=== PATIENT | male | born 1990 | race Caucasian/White ===

== ENCOUNTER 2018-05-20 14:42 | Emergency (ER) | payer MEDICAID ==
--- NOTE | 2018-05-20 15:22 | EDPHY ---
H & P Stated Complaint: WORM IN STOOL Time Seen by Provider: 05/20/18 15:01 HPI/ROS: CHIEF COMPLAINT: Worm in stool HISTORY OF PRESENT ILLNESS: 28-year-old male presents with a worm in his stool. Recent extensive travel to [place], followed by a camping trip [place] [facility]. Vague abdominal discomfort for few days, diarrhea a few days ago. Normal BM today, saw a whitish worm in stool this morning. No fever. REVIEW OF SYSTEMS: complete 10 point ROS negative except at noted in the HPI - Personal History Current Tetanus Diphtheria and Acellular Pertussis (TDAP): Yes - Medical/Surgical History Hx Asthma: No Hx Chronic Respiratory Disease: No Hx Diabetes: No Hx Cardiac Disease: No Hx Renal Disease: No Hx Cirrhosis: No Hx Alcoholism: No Hx HIV/AIDS: No Hx Splenectomy or Spleen Trauma: No Other PMH: DENIES - Social History Smoking Status: Current some day smoker - Physical Exam Exam: General Appearance: Alert, pleasant Eyes: Pupils equal and round, no conjunctival pallor ENT, Mouth: Mucous membranes moist Neck: Normal inspection Respiratory: Lungs are clear to auscultation Cardiovascular: Regular rate and rhythm Gastrointestinal: Abdomen is soft and nontender Neurological: A&O, nonfocal, normal gait Skin: Warm and dry Extremities: Normal inspection Psychiatric: Mood and affect normal Constitutional: Initial Vital Signs Temperature (C) 36.8 C 05/20/18 14:50 Heart Rate 98 05/20/18 14:50 Respiratory Rate 16 05/20/18 14:50 Blood Pressure 112/71 05/20/18 14:50 O2 Sat (%) 97 05/20/18 14:50 O2 Delivery Mode Room Air Allergies/Adverse Reactions: Sulfa (Sulfonamide Antibiotics) Allergy (Verified 05/20/18 14:49) Medical Decision Making ED Course/Re-evaluation: Pt brought possible worm to ED. "worm" is whitish, approx 5cm in length, no head/tail identifiable. The object was sent to lab and is not a worm. Pt reassured. - Data Points Laboratory Results: 05/20/18 15:10 Worm Identification Departure - Departure Disposition: Home, Routine, Self-Care Clinical Impression: concern about worm in stool Condition: Good Instructions: Additional Information Referrals: Venkatesh Birmingham MD [Medical Doctor] - As per Instructions
[2018-05-20 16:40] VITALS: BP 115/69
== END 2018-05-20 16:40 | disposition home or self-care (01) ==
DX: B82.9 Intestinal parasitism, unspecified (principal); F17.200 Nicotine dependence, unspecified, uncomplicated